=== PATIENT | male | born 1960 | race Caucasian/White ===

== ENCOUNTER → 2017-01-30 | Outpatient (CLI) | payer OTHER ==
[~2017-01-30] MED LIST: FLEXERIL10 MG PO; VICODIN PO
--- NOTE | ~2017-01-30 | MR113 ---
[facility] A Service of [facility] RADIOLOGY TEXT RESULTS PATIENT: ELIDIA TERRAZAS JR [facility] 62 UNIT #: [id number] AGE: [address]: Kareem Rosenbaum MD SEX: M ORDER DR: [id number] [facility] [address] [place], [place] [address] [id number] O MR#: [id number] Acc #: [id number] NAME: ELIDIA TERRAZAS : 1960 SEX: M STUDY DATE/TIME: 01/30/2017 12:50 UNIT: [facility] ROOM: STUDY DESCRIPTION: MR Lumbar Wo Contrast Attending Physician: Kareem Rosenbaum M.D. Referring Physician: Kareem Rosenbaum M.D. Ordering Physician: Kareem Rosenbaum M.D. Primary Care Physician: Yared Celeste M.D. MRI CENTER REPORT This report is preliminary unless electronic signature is present. EXAM MR lumbar spine INDICATION Low back pain. Lumbar radiculopathy. Left lumbar radiculitis. 1-year duration. TECHNIQUE Multiplanar MRI of the lumbar spine without contrast. COMPARISON None available. FINDINGS Vertebral body height and alignment is normal. There is no abnormal bone marrow signal. Signal characteristics of the distal thoracic spinal cord and conus medullaris are within normal limits. Conus terminates at the T12 level. L1-2 and L2-3: The intervertebral discs are mildly narrowed. There is no significant disc protrusion. No central canal or neural foraminal stenosis. There is mild facet arthropathy. L3-4: There is a small broad-based disc protrusion centrally. No significant central canal stenosis. There is mild facet arthropathy. These changes result in a moderate right and severe left neural foraminal stenosis. L4-5: The L4-5 disc is narrowed. There is a small posterior disc protrusion centrally. A small annular tear is noted along the right neural foraminal portion of the disc. No central canal stenosis. Mild facet arthropathy. A small 4 mm synovial cyst extends off the posterior aspect of the left facet. There is severe bilateral neural foraminal [facility] A Service of [facility] RADIOLOGY TEXT RESULTS PATIENT: ELIDIA TERRAZAS JR LOCATION: [facility] : [birth year] UNIT #: [id number] AGE: [address]: Kareem Rosenbaum MD SEX: M ORDER DR: stenosis. L5-S1: The disc is narrowed. No significant disc protrusion. Small central annular tear. No central canal stenosis. Mild bilateral neural foraminal stenosis due to facet arthropathy. IMPRESSION 1. Mild multilevel degenerative changes of the lumbar spine. This produces significant neural foraminal stenosis bilaterally at L4 and L4-5. 2. Small annular tears associated with the L4-5 and L5-S1 discs. Dictated by... Jasen Perez M.D. THIS IS AN ELECTRONICALLY VERIFIED REPORT Jasen Perez M.D. at 02/02/2017 1:01 PM BARBARA/navneet TD: 02/02/2017 12:54 JOB #: [id number] MRI CENTER REPORT Page 1 of 1 COPY
== END | disposition home or self-care (01) ==
LOC: CMRI 12:21
DX: M51.16 Intervertebral disc disorders with radiculopathy, lumbar region (principal); M47.26 Other spondylosis with radiculopathy, lumbar region; M99.83 Other biomechanical lesions of lumbar region; M51.17 Intervertebral disc disorders with radiculopathy, lumbosacral region
CPT/HCPCS: 72148

== ENCOUNTER → 2017-03-16 | Outpatient (CLI) | payer OTHER ==
--- NOTE | ~2017-03-16 | US6 ---
[facility] A Service of [facility] RADIOLOGY TEXT RESULTS PATIENT: ELIDIA TERRAZAS JR LOCATION: [facility] : 62 UNIT #: [id number] AGE: [address]: Chetan Flores MD SEX: M ORDER DR: [id number] [facility] [address] [place], [place] [address] [id number] O MR#: [id number] Acc #: [id number] NAME: ELIDIA TERRAZAS : 1960 SEX: M STUDY DATE/TIME: 03/16/2017 9:25 UNIT: [facility] ROOM: STUDY DESCRIPTION: US Abdominal Limited Attending Physician: Chetan Flores M.D. Referring Physician: Chetan Flores M.D. Ordering Physician: Chetan Flores M.D. Primary Care Physician: Yared Celeste M.D. MEDICAL IMAGING REPORT This report is preliminary unless electronic signature is present EXAM Right upper quadrant ultrasound, 03/16/2017 INDICATION 56-year-old male with abnormal liver enzymes. Random discomfort in the abdomen for years. Elevated liver enzymes. TECHNIQUE Sonographic imaging of the right upper quadrant was performed. We have no comparisons. FINDINGS The pancreas was not well visualized or assessed. Visualized aspects within normal limits. There is fatty infiltration of the liver. No focal liver mass or ascites. Liver measures about 14.9 cm long axis. The right kidney is nonobstructed measuring 11.7 cm long axis. The gallbladder is unremarkable to the extent visualized. No sonographic Park's sign was described. Extrahepatic common bile duct measures 2-3 mm. IMPRESSION 1. Technically limited study has significant portions of the right upper quadrant were obscured by bowel gas. 2. Fatty infiltration of the liver. 3. Examination is otherwise negative. Dictated by... Jordan Celis M.D. THIS IS AN ELECTRONICALLY VERIFIED REPORT Jordan Celis M.D. at 03/18/2017 3:25 PM ARISTEO/mere [facility] A Service of [facility] RADIOLOGY TEXT RESULTS PATIENT: ELIDIA TERRAZAS JR [facility] #: [id number] : [birth year] UNIT #: [id number] AGE: [address]: Chetan Flores MD SEX: M ORDER DR: TD: 03/17/2017 00:25 JOB #: [id number] MEDICAL IMAGING REPORT Page 1 of 1 COPY
== END | disposition home or self-care (01) ==
LOC: CGUS 08:35
DX: R94.5 Abnormal results of liver function studies (principal); I85.00 Esophageal varices without bleeding; K22.70 Barrett's esophagus without dysplasia; K31.89 Other diseases of stomach and duodenum; K76.0 Fatty (change of) liver, not elsewhere classified
CPT/HCPCS: 76705